=== PATIENT | male | born 2000 | race Caucasian/White ===

== ENCOUNTER → 2024-06-09 | Outpatient (REF) | payer OTHER ==
[2024-06-09 14:17] LABS: SEMEN APPEARANCE OPAQUE (OPAQUE); SEMEN VISCOSITY VISCOUS (LIQUID); SEMEN VOLUME 2.9 ml (2.0-5.0)
[2024-06-09 14:18] LABS: SPERM CONCENTRATION 10.1 M/ml (>=15.0); WBC CONCENTRATION >1 M/ml (<=1 M/ml)
== END ==
LOC: M LAB REF 14:02
DX: Z31.41 Encounter for fertility testing (principal)